=== PATIENT | female | born 1930 | race Caucasian/White ===

== ENCOUNTER 2017-02-17 09:15 | Emergency (ER) | payer MEDICARE, BC ==
[2017-02-17 09:37] VITALS: BP 171/70
--- NOTE | 2017-02-17 11:52 | EDM.PDOC ---
ED HPI GENERAL MEDICAL PROBLEM - General Chief Complaint: COMM[employer] Problem Stated Complaint: vaginal burning Time Seen by Provider: 02/17/17 10:30 - History of Present Illness INITIAL COMMENTS - FREE TEXT/NARRATIVE: This is an 86yo F with recent concerns of vaginal burning inside and outside. Patient states she was examined a few days ago but they did not find anything to treat. Patient states the symptoms are worse and persistent. Patient denies any discharge, no bleeding, no prior episodes. Onset: Sudden Duration: Day(s):, Getting Worse Location: Reports: Other (vagina, introitus) Quality: Reports: Burning Severity: Moderate Improves with: Reports: None Worsens with: Reports: None Associated Symptoms: Reports: No Other Symptoms - Related Data Allergies Allergy/AdvReac Type Severity Reaction Status Date / Time NSAIDS (Non-Steroidal Allergy Cannot Verified 04/25/13 08:37 Anti-Inflamma Remember Penicillins Allergy Rash Verified 04/25/13 08:37 Sulfa (Sulfonamide Allergy Cannot Verified 04/25/13 08:37 Antibiotics) Remember Home Meds: Home Meds Allopurinol [Zyloprim] 300 mg PO DAILY 04/25/13 [History] Digoxin [Lanoxin] 125 mcg PO DAILY 04/25/13 [History] Lisinopril 20 mg PO DAILY 04/25/13 [History] Metoprolol Succinate [Toprol XL] 50 mg PO DAILY 04/25/13 [History] Warfarin [Coumadin] 3 mg PO DAILY 04/25/13 [History] metFORMIN HCl [Metformin HCl] 500 mg PO DAILY 06/03/16 [History] Past Medical History HEENT History: Reports: Head, Impaired Vision Cardiovascular History: Reports: Hypertension Respiratory History: Reports: Other (See Below) Other Respiratory History: Uses oxygen at night, unsure why she uses it. 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 Endocrine/Metabolic History: Reports: Diabetes, Type II Oncologic (Cancer) History: Reports: Breast, Other (See Below) Other Oncologic History: L breast mastectomy - Past Surgical History Cardiovascular Surgical History: Reports: None GI Surgical History: Reports: Appendectomy, Cholecystectomy Endocrine Surgical History: Reports: None Neurological Surgical History: Reports: Other (See Below) Oncologic Surgical History: Reports: Mastectomy, Other (See Below) Social & Family History - Family History Family Medical History: Noncontributory - Tobacco Use Smoking Status *Q: Never Smoker Second Hand Smoke Exposure: No - Caffeine Use Caffeine Use: Reports: Coffee Other Caffeine Use: cup coffee in am - Alcohol Use Days Per Week of Alcohol Use: 0 - Recreational Drug Use Recreational Drug Use: No ED ROS GENERAL - Review of Systems Review Of Systems: ROS reveals no pertinent complaints other than HPI. ED EXAM, RENAL/ - Physical Exam Exam: See Below Exam Limited By: No Limitations General Appearance: Alert, WD/WN, Mild Distress Eye Exam: Bilateral Eye: PERRL Ears: Normal External Exam Nose: Normal Inspection Throat/Mouth: Normal Inspection Head: Atraumatic, Normocephalic Neck: Normal Inspection Respiratory/Chest: No Respiratory Distress, Lungs Clear, Normal Breath Sounds Cardiovascular: Normal Peripheral Pulses, Regular Rate, Rhythm (Female) Exam: Normal Speculum Exam, Other (slight redness and irritation). No: Cervical Dilatation, Cervical Discharge, Cervical Fluid, Cervical Lesions, Cervix Motion Tenderness, Enlarged Uterus, Uterine Tenderness, Vaginal Bleeding , Vaginal Discharge, Vaginal Lesions, Vaginal Tears Course - Vital Signs Last Recorded V/S: Last Vital Signs Temp 36.8 C 02/17/17 09:35 Pulse 86 02/17/17 09:35 Resp 18 02/17/17 09:35 BP 171/70 H 02/17/17 09:35 Pulse Ox 98 02/17/17 09:35 - Re-Assessments/Exams Free Text/Narrative Re-Assessment/Exam: VALDO and Wet prep done. Clue cells and minimal yeast cells. Departure - Departure Time of Disposition: 11:00 Disposition: Home, Self-Care 01 Condition: Good Clinical Impression: Bacterial vaginosis, Yeast infection - Discharge Information Instructions: Bacterial Vaginosis, [id number] Referrals: PCP,None [Primary Care Provider] - Forms: ED Department Discharge - Problem List & Annotations (1) Bacterial vaginosis SNOMED Code(s): 213030317 Code(s): N76.0 - ACUTE VAGINITIS; B96.89 - OTH BACTERIAL AGENTS THE CAUSE OF DISEASES CLASSD [id number] Status: Acute (2) Yeast infection SNOMED Code(s): 9613815 Code(s): B37.9 - CANDIDIASIS, UNSPECIFIED Status: Acute - Problem List Review Problem List Initiated/Reviewed/Updated: Yes - Assessment/Plan Plan: Prescription for flagyl and nystatin sent to pharmacy. Patient counseled on use and monitoring and f/u if symptoms persist or worsen. Patient agrees on follow up.
== END 2017-02-17 10:46 | disposition home or self-care (01) ==
LOC: LB.ED 09:15
DX: N76.0 Acute vaginitis (principal); B37.9 Candidiasis, unspecified; E11.9 Type 2 diabetes mellitus without complications; I10 Essential (primary) hypertension; F32.9 Major depressive disorder, single episode, unspecified; Z90.49 Acquired absence of other specified parts of digestive tract; Z79.01 Long term (current) use of anticoagulants; Z79.899 Other long term (current) drug therapy; Z79.84 Long term (current) use of oral hypoglycemic drugs; Z88.0 Allergy status to penicillin; Z88.2 Allergy status to sulfonamides
CPT/HCPCS: 88142; 99283

== ENCOUNTER 2017-02-19 19:01 | Emergency (ER) | payer MEDICARE, BC ==
[2017-02-19] MEDS ORDERED: Ondansetron 4 MG Tab.DIS ONE (19:20)
--- NOTE | 2017-02-19 21:14 | EDM.PDOC ---
ED HPI GENERAL MEDICAL PROBLEM - General Chief Complaint: General Stated Complaint: VOMITING Time Seen by Provider: 02/19/17 20:30 Source of Information: Reports: Patient History Limitations: Reports: No Limitations - History of Present Illness INITIAL COMMENTS - FREE TEXT/NARRATIVE: According to patient she has been having nausea for past 2 days. She claims that the she was seen on 02/17/17 for vaginal infection and diagnosed with bacterial vaginosis and started on some medication. Since she has started the mediation she has been feeling upset stomach, nausea. No diarrhea. has been having normal bowel movement. Has no taste to food. Pt did have one episode of vomiting today morning, but has not vomited since then.No fever or chills. No dysuria. No other complaints. - Related Data Allergies Allergy/AdvReac Type Severity Reaction Status Date / Time NSAIDS (Non-Steroidal Allergy Cannot Verified 04/25/13 08:37 Anti-Inflamma Remember Penicillins Allergy Rash Verified 04/25/13 08:37 Sulfa (Sulfonamide Allergy Cannot Verified 04/25/13 08:37 Antibiotics) Remember Home Meds: Home Meds Allopurinol [Zyloprim] 300 mg PO DAILY 04/25/13 [History] Digoxin [Lanoxin] 125 mcg PO DAILY 04/25/13 [History] Lisinopril 20 mg PO DAILY 04/25/13 [History] Metoprolol Succinate [Toprol XL] 50 mg PO DAILY 04/25/13 [History] Warfarin [Coumadin] 3 mg PO DAILY 04/25/13 [History] metFORMIN HCl [Metformin HCl] 500 mg PO DAILY 06/03/16 [History] Past Medical History HEENT History: Reports: Head, Impaired Vision Cardiovascular History: Reports: Hypertension Respiratory History: Reports: Other (See Below) Other Respiratory History: Uses oxygen at night, unsure why she uses it. 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 Endocrine/Metabolic History: Reports: Diabetes, Type II Oncologic (Cancer) History: Reports: Breast, Other (See Below) Other Oncologic History: L breast mastectomy - Past Surgical History Head Surgeries/Procedures: Reports: Other (See Below) Cardiovascular Surgical History: Reports: None GI Surgical History: Reports: Appendectomy, Cholecystectomy Endocrine Surgical History: Reports: None Neurological Surgical History: Reports: Other (See Below) Oncologic Surgical History: Reports: Mastectomy, Other (See Below) Social & Family History - Family History Family Medical History: Noncontributory - Tobacco Use Smoking Status *Q: Never Smoker Second Hand Smoke Exposure: No - Caffeine Use Caffeine Use: Reports: Coffee Other Caffeine Use: cup coffee in am - Alcohol Use Days Per Week of Alcohol Use: 0 - Recreational Drug Use Recreational Drug Use: No ED ROS GENERAL - Review of Systems Review Of Systems: See Below Constitutional: Reports: Weakness, Decreased Appetite. Denies: Fever, Chills, Night Sweats, Diaphoresis HEENT: Denies: Sinus Problem, Throat Pain, Throat Swelling Respiratory: Denies: Shortness of Breath, Cough, Sputum Cardiovascular: Denies: Chest Pain, Lightheadedness GI/Abdominal: Reports: Decreased Appetite, Flatus, Nausea, Vomiting. Denies: Abdominal Pain, Constipation, Diarrhea, Difficulty Swallowing, Distension : Denies: Dysuria, Flank Pain Musculoskeletal: Denies: Joint Pain, Joint Swelling Skin: Denies: Pruritis, Rash ED EXAM, GENERAL - Physical Exam Exam: See Below Exam Limited By: No Limitations General Appearance: Alert, WD/WN, No Apparent Distress Eye Exam: Bilateral Eye: EOMI, PERRL Ears: Normal External Exam, Normal Canal, Hearing Grossly Normal, Normal TMs Ear Exam: Bilateral Ear: Auricle Normal, Canal Normal, TM normal Nose: Normal Inspection, Normal Mucosa, No Blood Throat/Mouth: Normal Inspection, Normal Lips, Normal Teeth, Normal Gums, Normal Oropharynx, Normal Voice, No Airway Compromise Head: Atraumatic, Normocephalic Neck: Normal Inspection, Supple, Non-Tender, Full Range of Motion Respiratory/Chest: No Respiratory Distress, Lungs Clear, Normal Breath Sounds, No Accessory Muscle Use, Chest Non-Tender Cardiovascular: Normal Peripheral Pulses, Regular Rate, Rhythm, No Edema, No Gallop, No JVD, No Murmur, No Rub GI/Abdominal: Normal Bowel Sounds, Soft, Non-Tender, No Organomegaly, No Distention, No Abnormal Bruit, No Mass Extremities: Normal Inspection, Normal Range of Motion, Non-Tender, Normal Capillary Refill, No Pedal Edema Neurological: Alert, Oriented, CN II-XII Intact, Normal Cognition, Normal Gait, Normal Reflexes, No Motor/Sensory Deficits Skin Exam: Warm, Dry, Intact, Normal Color, No Rash Course - Vital Signs Text/Narrative:: Pt's vitals are stable. She is afebrile. Her CBC and CMp appear normal. Her BUN is 7 with projects manager of 0.77. I have reassured patient that she is not dehydrated. the cause of her nausea is flagyl, which can cause, upset stomach, nausea and loss of taste. the side effects should clear once the medication course is completed. I have advised patient to continue medication to clear the vaginal infection. meanwhile advised clear liquid to soft diet. encourage hydration. Also started her on Zofran 4mg 3 times daily for nausea. Return to emergency room if symptoms worsen, otherwise followup with on Tuesday. - Orders/Labs/Meds Labs: Laboratory Tests 02/19/17 02/19/17 Range/Units 20:25 20:25 WBC 6.9 (4.0-11.0) K/uL RBC 3.90 (3.80-5.80) M/uL Hgb 13.3 (11.5-16.5) g/dL Hct 38.9 (37.0-47.0) % MCV 100 H (76-96) fL MCH 34.1 H (27.0-32.0) pg MCHC 34.2 (31.0-35.0) g/dL RDW 14.1 (11.0-16.0) % Plt Count 161 (150-500) K/uL MPV 8.8 (6.0-10.0) fL Neut % (Auto) 69.3 (45.0-70.0) % Lymph % (Auto) 18.0 L (20.0-40.0) % Valencia % (Auto) 10.2 H (3.0-10.0) % Eos % (Auto) 2.2 (1.0-5.0) % Baso % (Auto) 0.3 (0.0-0.5) % Neut # (Auto) 4.80 (2.00-7.50) K/uL Lymph # (Auto) 1.25 L (1.50-4.00) K/uL Valencia # (Auto) 0.71 (0.20-0.80) K/uL Eos # (Auto) 0.15 (0.04-0.40) K/uL Baso # (Auto) 0.02 (0.02-0.10) K/uL Sodium 142 (136-145) mmol/L Potassium 3.7 (3.5-5.1) mmol/L Chloride 105 (98-107) mmol/L Carbon Dioxide 26.5 (21.0-32.0) mmol/L Anion Gap 14.2 (5.0-15.0) mmol/L BUN 7 L D (8-26) mg/dL Creatinine 0.77 (0.55-1.02) mg/dL Est Cr Clr Drug Dosing TNP Estimated GFR (MDRD) > 60 (>60) MLS/MIN BUN/Creatinine Ratio 9.1 (6-25) Glucose 105 H (74-100) mg/dL Calcium 9.3 (8.5-10.1) mg/dL Total Bilirubin 1.0 (0.0-1.0) mg/dL AST 31 (15-37) U/L ALT 20 (12-78) U/L Alkaline Phosphatase 69 (46-116) U/L Total Protein 7.1 (6.4-8.2) g/dL Albumin 3.8 (3.4-5.0) g/dL Globulin 3.3 (2.2-4.2) g/dL Albumin/Globulin Ratio 1.2 (0.8-2.0) Departure - Departure Time of Disposition: 21:20 Disposition: Home, Self-Care 01 Condition: Fair Clinical Impression: Medication side effect - Discharge Information Forms: ED Department Discharge - Problem List & Annotations (1) Medication side effect SNOMED Code(s): 48005167 Code(s): T88.7XXA - UNSP ADVERSE EFFECT OF DRUG OR MEDICAMENT, INIT ENCNTR Status: Acute - Problem List Review Problem List Initiated/Reviewed/Updated: Yes - Assessment/Plan Assessment:: Medication side effects Plan: Pt's vitals are stable. She is afebrile. Her CBC and CMp appear normal. Her BUN is 7 with projects manager of 0.77. I have reassured patient that she is not dehydrated. the cause of her nausea is flagyl, which can cause, upset stomach, nausea and loss of taste. the side effects should clear once the medication course is completed. I have advised patient to continue medication to clear the vaginal infection. meanwhile advised clear liquid to soft diet. encourage hydration. Also started her on Zofran 4mg 3 times daily for nausea. Return to emergency room if symptoms worsen, otherwise followup with on Tuesday.
== END 2017-02-19 21:17 | disposition home or self-care (01) ==
LOC: LB.ED 19:01
DX: R11.0 Nausea (principal); T37.3X5A Adverse effect of other antiprotozoal drugs, initial encounter; T36.7X5A Adverse effect of antifungal antibiotics, systemically used, initial encounter; I10 Essential (primary) hypertension; H54.7 Unspecified visual loss; Z88.2 Allergy status to sulfonamides; Z88.0 Allergy status to penicillin; Z88.6 Allergy status to analgesic agent; Z79.899 Other long term (current) drug therapy; Z79.01 Long term (current) use of anticoagulants
CPT/HCPCS: 36415; 80053; 85025; 99282; 99283; A9270

== ENCOUNTER 2017-10-29 07:27 | Emergency (ER) | payer MEDICARE, BC ==
[2017-10-29] MEDS ORDERED: Ondansetron 4 MG Tab.DIS PO ONE (07:38)
[2017-10-29 08:07] VITALS: BP 134/72
--- NOTE | 2017-10-29 14:20 | EDM.PDOC ---
ED HPI GENERAL MEDICAL PROBLEM - General Stated Complaint: SICK X2 DAYS Time Seen by Provider: 10/29/17 08:00 Source of Information: Reports: Patient History Limitations: Reports: No Limitations - History of Present Illness INITIAL COMMENTS - FREE TEXT/NARRATIVE: According to patient she was seen 3 days ago for back pain and was diagnosed with UTI and was started on cipro and Tylenol #3. Pt claims that she has been having nausea since he has been on the medication. Also for past 2 days has been having very unusual sensation. She calims that she can hear thing, but cannot understand it. But the voice bothers her all day and night. No fever or chills. Pt has been feeling tired and also has not had a bowel movement for past 4 days now. No dysuria, or frequent urination or urgency. Onset Date: 10/26/17 Severity: Mild Associated Symptoms: Reports: Confusion, Nausea/Vomiting, Weakness. Denies: Chest Pain, Cough, Diaphoresis, Fever/Chills, Headaches, Malaise, Rash, Seizure , Shortness of Breath, Syncope - Related Data Allergies Allergy/AdvReac Type Severity Reaction Status Date / Time NSAIDS (Non-Steroidal Allergy Cannot Verified 04/25/13 08:37 Anti-Inflamma Remember Penicillins Allergy Rash Verified 04/25/13 08:37 Sulfa (Sulfonamide Allergy Cannot Verified 04/25/13 08:37 Antibiotics) Remember Home Meds: Home Meds Allopurinol [Zyloprim] 300 mg PO DAILY 04/25/13 [History] Digoxin [Lanoxin] 125 mcg PO DAILY 04/25/13 [History] Lisinopril 20 mg PO DAILY 04/25/13 [History] Metoprolol Succinate [Toprol XL] 50 mg PO DAILY 04/25/13 [History] Warfarin [Coumadin] 3 mg PO DAILY 04/25/13 [History] Amitriptyline [Elavil] 25 mg PO BEDTIME 10/29/17 [History] Simvastatin 40 mg PO DAILY 10/29/17 [History] Past Medical History HEENT History: Reports: Head, Impaired Vision Cardiovascular History: Reports: Hypertension Respiratory History: Reports: Other (See Below) Other Respiratory History: Uses oxygen at night, unsure why she uses it. 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 Endocrine/Metabolic History: Reports: Diabetes, Type II Oncologic (Cancer) History: Reports: Breast, Other (See Below) Other Oncologic History: L breast mastectomy - Past Surgical History Head Surgeries/Procedures: Reports: Other (See Below) Cardiovascular Surgical History: Reports: None GI Surgical History: Reports: Appendectomy, Cholecystectomy Endocrine Surgical History: Reports: None Neurological Surgical History: Reports: Other (See Below) Oncologic Surgical History: Reports: Mastectomy, Other (See Below) Social & Family History - Family History Family Medical History: Noncontributory - Tobacco Use Smoking Status *Q: Never Smoker Second Hand Smoke Exposure: No - Caffeine Use Caffeine Use: Reports: Coffee Other Caffeine Use: cup coffee in am - Alcohol Use Days Per Week of Alcohol Use: 0 - Recreational Drug Use Recreational Drug Use: No ED ROS GENERAL - Review of Systems Review Of Systems: See Below Constitutional: Reports: Weakness. Denies: Fever, Chills HEENT: Denies: Sinus Problem, Throat Pain, Throat Swelling, Vertigo, Vision Change Respiratory: Denies: Shortness of Breath, Wheezing, Cough, Sputum Cardiovascular: Denies: Chest Pain, Lightheadedness GI/Abdominal: Reports: Constipation, Nausea. Denies: Anorexia, Diarrhea, Decreased Appetite, Vomiting : Denies: Dysuria, Pain, Urgency Musculoskeletal: Denies: Joint Pain, Joint Swelling Skin: Denies: Jaundice, Pruritis, Rash Neurological: Reports: Confusion. Denies: Dizziness, Headache, Numbness, Seizure, Syncope Psychiatric: Reports: Anxiety, Hallucinations. Denies: Agitation, Confusion, Homicidal Ideation, Mood Lability, Suicidal Ideation ED EXAM, GENERAL - Physical Exam Exam: See Below Exam Limited By: No Limitations General Appearance: Alert, WD/WN, No Apparent Distress Eye Exam: Bilateral Eye: EOMI, PERRL Ears: Normal External Exam, Normal Canal, Hearing Grossly Normal, Normal TMs Ear Exam: Bilateral Ear: Auricle Normal, Canal Normal, TM normal Nose: Normal Inspection, Normal Mucosa, No Blood Throat/Mouth: Normal Inspection, Normal Lips, Normal Teeth, Normal Gums, Normal Oropharynx, Normal Voice, No Airway Compromise Head: Atraumatic, Normocephalic Neck: Normal Inspection, Supple, Non-Tender, Full Range of Motion Respiratory/Chest: No Respiratory Distress, Lungs Clear, Normal Breath Sounds, No Accessory Muscle Use, Chest Non-Tender Cardiovascular: Normal Peripheral Pulses, Regular Rate, Rhythm, No Edema, No Gallop, No JVD, No Murmur, No Rub GI/Abdominal: Normal Bowel Sounds, Soft, Non-Tender, No Organomegaly, No Distention, No Abnormal Bruit, No Mass Back Exam: Normal Inspection, Full Range of Motion, NT Extremities: Normal Inspection, Normal Range of Motion, Non-Tender, Normal Capillary Refill, No Pedal Edema Neurological: Alert, Oriented, CN II-XII Intact, Normal Cognition, Normal Gait, Normal Reflexes, No Motor/Sensory Deficits Psychiatric: Normal Affect, Normal Mood, Anxious. No: Depressed Mood, Flat Affect, Tearful Course - Vital Signs Text/Narrative:: Pt has been having nausea, constipation, weakness and confusion and hallucinations. All her symptoms have started since she has been have tylenol # 3. Pt is naive to narcotics. Pt reassured that her symptoms are form codiene, advised to stop the mediation. Drink plenty of fluids. She did receive zofran 4mg ODT, which did help with her nausea. Pt reassured, that he hallucinations should resolve with in 24 hrs. if not advised to return to emergency room. She just had complete workup 3 days ago, hence I have not done any lab work today. Last Recorded V/S: Last Vital Signs Temp 98.2 F 10/29/17 08:01 Pulse 73 10/29/17 08:01 Resp 20 10/29/17 08:01 BP 134/72 10/29/17 08:01 Pulse Ox 95 10/29/17 08:01 - Orders/Labs/Meds Meds: Medications Discontinued Medications Generic Name Dose Route Start Last Admin Trade Name Cheri PRN Reason Stop Dose Admin Ondansetron HCl 4 mg 10/29/17 07:38 10/29/17 07:38 Zofran Odt PO 10/29/17 07:39 4 mg ONETIME ONE Administration Departure - Departure Time of Disposition: 08:45 Disposition: Home, Self-Care 01 Condition: Good Clinical Impression: Hallucination, drug-induced - Discharge Information Referrals: PCP,None [Primary Care Provider] - Forms: ED Department Discharge Additional Instructions: stop taking Tylenol #3, continue Cipro 500mg as ordered until gone - Problem List & Annotations (1) Hallucination, drug-induced SNOMED Code(s): 110518292 Code(s): F19.951 - OT PSYCHOACTV SUB USE, UNSP W PSYCH DISORDER W HALLUCIN Status: Acute - Problem List Review Problem List Initiated/Reviewed/Updated: Yes - Assessment/Plan Assessment:: Hallucinations induced by Codeine Plan: Pt has been having nausea, constipation, weakness and confusion and hallucinations. All her symptoms have started since she has been have tylenol # 3. Pt is naive to narcotics. Pt reassured that her symptoms are form codiene, advised to stop the mediation. Drink plenty of fluids. She did receive zofran 4mg ODT, which did help with her nausea. Pt reassured, that he hallucinations should resolve with in 24 hrs. if not advised to return to emergency room. She just had complete workup 3 days ago, hence I have not done any lab work today.
== END 2017-10-29 08:19 | disposition home or self-care (01) ==
LOC: LB.ED 07:27
DX: F19.951 Other psychoactive substance use, unspecified with psychoactive substance-induced psychotic disorder with hallucinations (principal); I10 Essential (primary) hypertension; E11.9 Type 2 diabetes mellitus without complications; Z90.49 Acquired absence of other specified parts of digestive tract; Z88.0 Allergy status to penicillin; Z88.6 Allergy status to analgesic agent; Z88.2 Allergy status to sulfonamides; Z79.899 Other long term (current) drug therapy; Z79.01 Long term (current) use of anticoagulants; F32.9 Major depressive disorder, single episode, unspecified
CPT/HCPCS: 99283; A9270; 99282